=== PATIENT | male | born 1985 | race Two or more races ===

== ENCOUNTER → 2020-01-25 | Emergency (ER) | payer SELFPAY ==
[~2020-01-25] VITALS: Ht 177.8 cm; Wt 99.8 kg
[~2020-01-25] MED LIST: HYDROmorphone HCL 2 MG/ML VL IV ONE; MORPHINE SULFATE 4 MG/ML SYR/VIAL IV ONE; ONDANSETRON HCL 4 MG/2 ML VIAL IV ONE
[2020-01-25 19:16] LABS: Basophils # (auto) 0 10 ^3/uL (0-0.2); Basophils % (auto) 0.1 % (0.0-2.0); Eosinophils # (auto) 0 10 ^3/uL (0-0.8); Hematocrit 38.6 % (41.0-53.0); Hemoglobin 12.9 g/dL (13.5-17.5); Lymphocytes # (auto) 0.8 10 ^3/uL (0.4-5.4); Lymphocytes % (auto) 3.1 % (10.0-50.0); Mean Corpuscular Hemoglobin 30.3 pg (28.0-32.0); Mean Corpuscular Hgb Conc. 33.5 g/dL (32.0-36.0); Mean Corpuscular Volume 90.7 fL (80.0-100.0); Monocytes # (auto) 2.1 10 ^3/uL (0-1.3); Neutrophils # (auto) 23.7 10 ^3/uL (1.6-8.6); Neutrophils % (auto) 88.8 % (37.0-80.0); Platelet Count (auto) 281 10^3/uL (140-450); Red Blood Cells 4.26 10^6/uL (4.5-5.90); Red Cell Distribution Width 13.1 % (11.8-14.3); White Blood Cell 26.8 10^3/uL (4.4-10.8)
[2020-01-25 19:33] LABS: Albumin 3.8 g/dL (3.4-5.0); Calcium 8.5 mg/dL (8.5-10.1); Magnesium 2.2 mg/dL (1.6-2.6); Potassium 3.6 mmol/L (3.5-5.1)
[2020-01-25 19:36] LABS: BUN/Creatinine Ratio 11.4; Bilirubin, Total 0.7 mg/dL (0.2-1.0); Total Protein 6.8 g/dL (6.4-8.2)
[2020-01-25 21:55] VITALS: BP 117/68
== END | disposition home or self-care (01) ==
LOC: ER 16:55
DX: S32.401A Unspecified fracture of right acetabulum, initial encounter for closed fracture (principal); S32.10XA Unspecified fracture of sacrum, initial encounter for closed fracture; V29.9XXA Motorcycle rider (driver) (passenger) injured in unspecified traffic accident, initial encounter; Y93.55 Activity, bike riding; Y92.89 Other specified places as the place of occurrence of the external cause; Y99.8 Other external cause status
CPT/HCPCS: 36415; 71250; 72125; 72170; 74176; 80053; 83735; 85025; 96374; 96375; 96376; 99285; J1170; J2270; J2405

== ENCOUNTER 2020-02-05 07:39 | Emergency (ER) | payer MEDICAID, OTHER ==
[~2020-02-05] VITALS: Ht 180.3 cm; Wt 90.7 kg
[2020-02-05 08:04] VITALS: BP 128/69
[2020-02-05] MEDS ORDERED: SODIUM CHLORIDE 0.9% 1,000 ML IV ONE ×2 (08:13)
[2020-02-05] MEDS ORDERED: KETOROLAC TROMETH 15 mg/ml 1ML VL IV ONE ×2 (08:15)
[2020-02-05] MEDS ORDERED: KETOROLAC TROMETH 30 MG/ML 1ML VIAL ONE (08:18)
[2020-02-05] MEDS ORDERED: HYDROmorphone HCL 2 MG/ML VL ONE (08:25)
[2020-02-05] MEDS ORDERED: ONDANSETRON HCL 4 MG/2 ML VIAL ONE (08:25)
[2020-02-05] MEDS ORDERED: ONDANSETRON HCL 4 MG/2 ML VIAL IV ONE (08:30)
[2020-02-05] MEDS ORDERED: HYDROmorphone HCL 2 MG/ML VL IV ONE (08:30)
[2020-02-05 08:32] LABS: Eosinophils # (auto) 0.3 10 ^3/uL (0-0.8)
[2020-02-05 08:34] LABS: Basophils # (auto) 0 10 ^3/uL (0-0.2); Basophils % (auto) 0.3 % (0.0-2.0); Eosinophils % (auto) 2.4 % (0.0-7.0); Hematocrit 27.9 % (41.0-53.0); Hemoglobin 9.4 g/dL (13.5-17.5); Lymphocytes # (auto) 2.6 10 ^3/uL (0.4-5.4); Lymphocytes % (auto) 20.8 % (10.0-50.0); Mean Corpuscular Hemoglobin 31.3 pg (28.0-32.0); Mean Corpuscular Hgb Conc. 33.9 g/dL (32.0-36.0); Mean Corpuscular Volume 92.3 fL (80.0-100.0); Neutrophils # (auto) 8.6 10 ^3/uL (1.6-8.6); Neutrophils % (auto) 68.5 % (37.0-80.0); Red Blood Cells 3.02 10^6/uL (4.5-5.90); Red Cell Distribution Width 14.3 % (11.8-14.3); White Blood Cell 12.6 10^3/uL (4.4-10.8)
[2020-02-05 08:50] LABS: Calcium 8.4 mg/dL (8.5-10.1); Potassium 3.7 mmol/L (3.5-5.1)
[2020-02-05 08:52] LABS: Platelet Count (auto) 681 10^3/uL (140-450)
[2020-02-05 08:54] LABS: BUN/Creatinine Ratio 15.7; Bilirubin, Total 0.8 mg/dL (0.2-1.0); Total Protein 6.8 g/dL (6.4-8.2)
== END 2020-02-05 09:37 | disposition home or self-care (01) ==
LOC: ER 07:39
DX: G89.29 Other chronic pain (principal); M79.18 Myalgia, other site; E86.0 Dehydration; D72.829 Elevated white blood cell count, unspecified; E46 Unspecified protein-calorie malnutrition; R73.9 Hyperglycemia, unspecified; D64.9 Anemia, unspecified; F17.210 Nicotine dependence, cigarettes, uncomplicated; F12.10 Cannabis abuse, uncomplicated
CPT/HCPCS: 36415; 71045; 72170; 80053; 85025; 96361; 96374; 96375; 99284; J1170; J1885; J2405